=== PATIENT | male | born 1940 | race Caucasian/White ===

== ENCOUNTER 2020-02-26 09:57 | Emergency (ER) | payer MEDICARE, OTHER, SELFPAY ==
[2020-02-26 09:59] VITALS: BP 145/83; PULSE 58; RESP 18; TEMP 36.4; O2SAT 96; BMI 23.3
--- NOTE | 2020-02-26 10:09 | CT_ITS ---
STUDY: CT ABDOMEN AND PELVIS WITHOUT CONTRAST REASON FOR EXAM: Male, 80 years old. ABD PAIN W/ CONSTIPATION, LLQ HERNIA, HX BLADDER CA W/ TUMOR REMOVAL, RECURRENT UTI, HTN RADIATION DOSAGE (If Supplied By Facility): CTDIvol = ( 8.15 ) mGy, DLP = ( 625.98 ) mGycm TECHNIQUE: Transaxial images were obtained from the dome of the diaphragm to the symphysis pubis without oral contrast, and without intravenous contrast. Sagittal and coronal images were reconstructed. Individualized dose optimization techniques were used for this CT. COMPARISON: None. FINDINGS: There are chronic interstitial fibrotic changes of the lung bases. The visualized portions of the heart are within normal limits. Normal liver. Normal gallbladder and extrahepatic biliary system. Normal spleen. Normal pancreas. Normal bilateral adrenal glands. The right kidney shows severe right hydronephrosis and dilated calyces, dilated pelvis, and dilated ureter along its entire course. There is no obstructing stone, there may be a stricture at the left UVJ. The right kidney does not show obstructive uropathy, there is a simple 4.7 cm cyst. Normal visualized stomach. Normal small intestine. Scattered colonic diverticulosis, no CT evidence of acute diverticulitis. There is non-visualization of the appendix. Normal abdominal aorta. Normal inferior vena cava. Normal retroperitoneum. There is diffuse thickening of the bladder wall with pericystic inflammation consistent with diffuse cystitis, an underlying neoplasm cannot be excluded and further evaluation with cystoscopy is recommended. Small bilateral inguinal hernias noted. There are diffuse degenerative changes of the visualized lumbar spine, and pelvis. CT/Abdomen/Pelvis W IV Cont ONLY IMPRESSION: Severe right hydronephrosis and hydroureter. There is dilatation of the calyces, of the right renal pelvis and entirety of the right ureter. No demonstrated obstructing stone or mass lesion, there may be a stricture at the right UVJ. Diffuse abnormal thickening of the bladder wall with pericystic inflammation suggesting diffuse cystitis, neoplasm cannot be excluded and further evaluation with cystoscopy is recommended Simple left renal cyst needs no specific follow-up Colonic diverticulosis Degenerative bony changes Electronically Signed: Spenser Oswald MD at 11:20 EDT , Service support ,
--- NOTE | 2020-02-26 10:10 | ED.DCSUM_ITS ---
History of Present Illness Chief Complaint: Abd Pain Informant: Patient Onset: Days Context: Gradual Onset Timing: Continuous Current Severity: Moderate Maximum Severity: Moderate Narrative: The patient is a 80-year-old male medical history significant for hypertension and prior bladder cancer that presents to the emergency department with constipation, abdominal fullness, nausea, dysuria. The patient states that he has had multiple bladder cystoscopies with removal of bladder tumor. He states that he will get recurrent urinary tract infections because of this. He states that over the past 3 weeks, he is begun to have some abdominal fullness and constipation. He states if he takes laxatives, he will move his bowels. Sometimes, he will get some cramping pain. He is also had increased urination, dysuria, and states there is an odor to it. Prior similar symptoms: No Recent Illness/Hospitalization: No Past Medical History - Allergies and Home Meds Allergies/Adverse Reactions: Allergies No Known Allergies Allergy (Verified 02/26/20 10:01) Primary Care Physician: Evan Doctor,Out of [NON-STAFF] - Prior records reviewed: Yes Past Medical History: - - Recurrent urinary tract infection, hypertension Surgical History: herniorrhaphy Review of Systems General: Denies: Chills, Fever, Sweats Eyes: Denies: Visual changes - bilaterally, Diplopia ENT: Denies: Rhinorrhea, Sore throat Cardiovascular: Denies: Chest pain, Palpitations Respiratory: Denies: Dyspnea, Cough, Dyspnea on exertion Gastrointestinal: Reports: Nausea, Constipation. Denies: Abdominal pain, Vomiting, Diarrhea, Melena, Hematochezia Genitourinary: Reports: Dysuria, Frequency. Denies: Hematuria Musculoskeletal: Denies: Back pain, Extremity Pain Skin: Denies: Rash, Wounds Neurological: Denies: Headache, Weakness, Numbness Physical Exam Vital Signs/Narrative: Vital Signs Temp Pulse Resp BP Pulse Ox 02/26/20 09:59 97.6 F L 58 L 18 145/83 H 96 Inital Vital Signs reviewed: Yes General: Well nourished, Well developed, No Acute Distress Head: Normocephalic, Atraumatic Eyes: Perrl, EOMI ENT: Moist mucous membranes, No rhinorrhea Neck: Supple, Nontender Cardiovascular: Regular rate, Regular rhythm, No murmurs Respiratory: No distress, CTA bilaterally, Chest nontender Abdomen: Soft, Nontender, Nondistended, Normal bowel sounds, Inguinal hernia, Umbilical hernia, Hernia reducible Back: Nontender, Normal Inspection Extremities: Nontender, No edema Skin: Normal color, No rash Neurological: Alert, Oriented x3, Cranial nerves II-XII grossly intact, Normal Strength, Normal Sensation Psychological: Normal affect, Normal Mood Diagnostic/Tx/Re-eval Clinical Impression(s) from Imaging Studies Abdomen/Pelvis CT 02/26/20 10:09 IMPRESSION: Severe right hydronephrosis and hydroureter. There is dilatation of the calyces, of the right renal pelvis and entirety of the right ureter. No demonstrated obstructing stone or mass lesion, there may be a stricture at the right UVJ. Diffuse abnormal thickening of the bladder wall with pericystic inflammation suggesting diffuse cystitis, neoplasm cannot be excluded and further evaluation with cystoscopy is recommended Simple left renal cyst needs no specific follow-up Colonic diverticulosis Degenerative bony changes Electronically Signed: Spenser Oswald MD at 11:20 EDT , Service support , Abnormal Lab Results 02/26/20 02/26/20 02/26/20 10:10 10:10 10:10 WBC 11.2 H RBC 4.57 L Hgb 14.3 Hct 43.0 MCV 94.1 H MCH 31.3 MCHC 33.3 RDW Std Deviation 47.8 H RDW Coeff of Monique 14.1 Plt Count 280 MPV 9.1 Immature Gran % (Auto) 0.500 Neut % (Auto) 70.5 H Lymph % (Auto) 17.4 L Elmore % (Auto) 9.8 Eos % (Auto) 1.1 Baso % (Auto) 0.7 Absolute Neuts (auto) 7.9 H Absolute Lymphs (auto) 1.94 Nucleated RBC % 0 Sodium 136 Potassium 4.2 Chloride 107 Carbon Dioxide 26.0 Anion Gap 3 L BUN 25 H Creatinine 1.36 H Estim Creat Clear Calc 38.31 Est GFR (MDRD) Af Amer 65 Est GFR (MDRD) Non-Af 54 L BUN/Creatinine Ratio 18.4 Glucose 105 Calcium 8.9 Total Bilirubin 0.60 AST 25 ALT 44 Alkaline Phosphatase 98 Total Protein 7.7 Albumin 3.8 Globulin 3.9 Albumin/Globulin Ratio 1.0 Urine Color Yellow Urine Clarity Sl. Cloudy Urine pH 6.0 Ur Specific Blakely 1.015 Urine Protein 100 H Urine Glucose (UA) 100 H Urine Ketones Negative Urine Occult Blood 250 H Urine Nitrite Negative Urine Bilirubin Negative Urine Urobilinogen Normal Ur Leukocyte Esterase 500 H Urine RBC 25-50 SEEN Urine WBC 50-100 SEEN Ur Squamous Epith Cells 0-5 SEEN Urine Bacteria 1+ Urine Mucus 0 SEEN - Medical Decision Making The patient presents with constipation and urinary symptoms. He does have history of recurrent urinary tract infection. His abdomen is soft and nontender. He has a reducible left inguinal hernia without pain or evidence of incarceration. IV was established. Labs were obtained. His urine does show evidence of infection. Patient underwent CT which shows no evidence of bowel obstruction. There is hydronephrosis of the right kidney. The patient states t hat he has had this evaluated in the past by his urologist. He has no evidence of acute renal insufficiency. At this point, I do feel the patient is safe for outpatient follow-up. He will be placed on magnesium citrate and antibiotics. He is given a dose of IV Rocephin and urine culture was added. He is comfortable with this plan of care. Impression 1. Constipation 2. Acute cystitis ED Disposition - Plan for ED Patient: Instructions: ED Constipation, ED CYSTITIS Male Adult Prescriptions: Cephalexin [Keflex] 500 mg PO Q8 #21 cap Prescription Printed Referrals: [facility] Doctor,Out of [NON-STAFF] -
[2020-02-26] MEDS: 0.9% Normal Saline 1,000 ML 1000 ML IV (10:15)
[2020-02-26] MEDS: Ondansetron 4 MG/2 ML Vial IV (10:20)
[2020-02-26 10:26] LABS: Mucous, Urine 0 SEEN /hpf (<or=2+)
[2020-02-26 10:31] LABS: Absolute Lymphocyte Count 1.94 X10^3/uL (0.83-4.51); Absolute Neutrophil Count 7.9 X10^3/uL (2.0-7.7); Basophil# 0.08 X10^3/uL; Basophil% 0.7 % (0-1); Eosinophil# 0.12 X10^3/uL; Eosinophils% 1.1 % (0-5); Hemoglobin 14.3 g/dL (13.0-16.5); Lymphocyte # 1.94 X10^3/ul (4.0); Lymphocyte % 17.4 % (19-41); Mean Corp Hgb Conc 33.3 g/dL (32-36); Mean Corpuscular Hgb 31.3 pg (27.0-32.0); Mean Corpuscular Volume 94.1 fL (80-94); Mean Platelet Vol. 9.1 fl (6.2-12.0); Monocyte# 1.09 X10^3/uL; Monocyte% 9.8 % (0-10); NRBC Flagged by Analyzer 0 % (0-5); Neutrophil # 7.86 X10^3/uL (2.7-7.7); Neutrophil % 70.5 % (47-70); Platelet Count 280 K/mm3 (150-450); RBC Distribution Width CV 14.1 % (11.6-14.6); RBC Distribution Width SD 47.8 fl (35.1-43.9); Red Blood Count 4.57 M/mm3 (4.6-6.2); White Blood Count 11.2 K/mm3 (4.4-11.0)
[2020-02-26 10:44] LABS: Color, Urine Yellow (Yellow); Glucose, Dipstick 100 mg/dl (Normal); Ketone-Dipstick Negative (Negative); Leukocyte Esterase-Dipstick 500 /ul (Negative); Nitrite-Dipstick Negative (Negative); Occult Blood-Urine 250 /ul (Negative); Protein-Dipstick 100 mg/dl (Negative); Specific Gravity, Urine 1.015 (1.002-1.030); Urine Bilirubin Dipstick Negative (Negative); Urine Clarity Sl. Cloudy (Clear); Urine Urobilinogen Normal (Normal)
[2020-02-26 10:51] LABS: AST(SGOT) 25 U/L (15-37); Alanine Aminotransfer ALT/SGPT 44 U/L (16-61); Albumin, Serum 3.8 g/dL (3.2-5.0); Alkaline Phosphatase 98 U/L (45-117); Anion Gap 3 (5-15); BUN 25 mg/dL (7-18); BUN/Creat Ratio 18.4 RATIO (10-20); Bacteria 1+ /hpf (None Seen); Calcium,Total 8.9 mg/dL (8.5-10.1); Chloride 107 mmol/L (98-107); Creatinine, Serum 1.36 mg/dL (0.70-1.30); EST Glomerular Filtration Rate 54 mL/min (>60); Est Glom Filt Rate - Afr Amer 65 mL/min (>60); Estimated Creatinine Clearance 38.31 ml/min; Globulin 3.9 g/dL (2.2-4.2); Glucose 105 mg/dL (74-106); Potassium 4.2 mmol/L (3.5-5.1); Protein, Total 7.7 g/dL (6.4-8.2); Red Blood Cells-Urine 25-50 SEEN /hpf (0-5); Sodium Level 136 mmol/L (136-145); Squamous Epithelial Cells - UA 0-5 SEEN /hpf (0-5); White Blood Cells 50-100 SEEN /hpf (0-5)
[2020-02-26] MEDS: Ceftriaxone 1 GM/50 ML BAG IV (12:13)
[2020-02-26] MEDS: Magnesium Citrate 300 ML PO (12:57)
[2020-02-26 13:00] VITALS: BP 132/76; PULSE 80; RESP 17; O2SAT 97
== END 2020-02-26 13:03 | disposition home or self-care (01) ==
LOC: ED 11:14
PROVIDERS: Emergency Provider Emergency Medicine
DX: K59.00 Constipation, unspecified (principal); N30.00 Acute cystitis without hematuria; I10 Essential (primary) hypertension; Z87.440 Personal history of urinary (tract) infections
CPT/HCPCS: 74177; 80053; 81001; 85025; 87077; 87086; 87088; 87186; 96361; 96365; 96375; 99284; J7030; Q9967; J2405

== ENCOUNTER 2020-03-04 14:35 | Emergency (ER) | payer MEDICARE, OTHER, SELFPAY ==
[2020-03-04 14:37] VITALS: BP 126/79; PULSE 69; RESP 14; TEMP 36.7; O2SAT 98; BMI 22.4
--- NOTE | 2020-03-04 15:20 | RAD_ITS ---
STUDY: X-RAY - RIGHT FOOT CLINICAL: Male, 80 years old. PT ARRIVES TO ED WITH RIGHT FOOT PAIN. PAIN LATERALLY RIGHT FOOT BASE OF 5TH METATARSAL. NO INJURY. TECHNIQUE: 33 view(s) of the foot. COMPARISON: None. FINDINGS: Normal talus, calcaneus, and tarsal bones. Normal visualized subtalar, talonavicular, calcaneocuboid, tarsal and tarsometatarsal articulations. Normal metatarsi. There is mild degenerative arthrosis of the metatarsophalangeal joint of the hallux . Normal tibial and fibular sesamoid bones. Normal interphalangeal joint of the great toe. Normal phalanges of the great toe. Normal second through fifth metatarsophalangeal joints. Normal interphalangeal joints and phalanges of the lesser toes. Soft tissue swelling. RAD/Foot min 3 Views IMPRESSION: Soft tissue swelling. Electronically Signed: Jose Vora, at 15:40 EDT , Service support ,
--- NOTE | 2020-03-04 17:03 | ED.VISSUMM ---
- ER Visit Summary Date of Service: 03/04/20 Chief Complaint: Right foot pain History of Present Illness: The patient is a 80 M who presents with right foot pain that began 3 to 4 days ago. Patient states the pain is worse with walking. Patient describes it as aching. Patient denies any trauma or injury. Patient denies any fevers or chills. Patient denies any snapping or popping sensation. Patient denies any paresthesias or weakness. Physical Examination: Vital signs are stable. Patient is afebrile. Patient is in no acute distress. Musculoskeletal exam reveals tenderness over the right fifth metatarsal area. There is some edema and ecchymosis. There is no erythema or warmth noted. There is no deformity noted. Range of motion was limited in all motions secondary to pain. Sensation was intact to light touch in all digits. Capillary refill was less than 2 seconds in all digits. Test Results: X-rays of the right foot were obtained. There is no acute fracture. There is soft tissue swelling. This was interpreted by the radiologist and myself. Emergency Department Course and Treatment: Patient was given a walking boot. Patient was instructed to ice and elevate the right foot. Patient was instructed to follow-up with his primary care physician in 5 to 7 days. Patient and family understood and were agreeable with the plan. All questions were answered. Disposition: Discharge home Impression: Right foot pain This note was generated with [employer] dictation software. It may contain incorrect words, spelling, and punctuation that were not noted in review of the chart prior to signing ED Disposition - Plan for ED Patient: Disposition: Home or Assisted Living Diagnosis: Right foot pain Instructions: ED FOOT CONTUSION Referrals: NOT,DEFINED [NON-STAFF] - 5-7 Days
[2020-03-04 17:45] VITALS: BP 134/77; PULSE 62; RESP 15; O2SAT 97
== END 2020-03-04 17:46 | disposition home or self-care (01) ==
PROVIDERS: Emergency Provider Emergency Medicine
DX: S90.31XA Contusion of right foot, initial encounter (principal); I10 Essential (primary) hypertension; Z79.899 Other long term (current) drug therapy; X58.XXXA Exposure to other specified factors, initial encounter; Y93.89 Activity, other specified; Y92.89 Other specified places as the place of occurrence of the external cause; Y99.8 Other external cause status
CPT/HCPCS: 73630; 99283